=== PATIENT | male | born 1960 | race African-American/Black ===

== ENCOUNTER → 2019-05-03 | Day surgery (SDC) | payer MEDICARE ==
[2019-04-24 13:27] LABS: BASOPHILS % 0.6 % (0.0-1.0); EOSINOPHILS # (AUTO) 0.2 (0.0-0.4); EOSINOPHILS % 3.1 % (0.0-6.0); HEMOGLOBIN 12.2 g/dL (14.0-18.0); LYMPHOCYTES # (AUTO) 3.7 (1.0-3.2); LYMPHOCYTES % 53.3 % (18.0-39.1); MEAN CORPUSCULAR HEMOGLOBIN 25.2 pg (28-32); MEAN CORPUSCULAR HGB CONC 30.5 g/dL (31-35); MEAN CORPUSCULAR VOLUME 82.5 fL (81-99); MONOCYTES # (AUTO) 0.6 (0.2-0.8); MONOCYTES % 9.1 % (4.4-11.3); NEUTROPHILS # (AUTO) 2.3 (2.1-6.9); NEUTROPHILS % 33.8 % (38.7-80.0); PLATELET COUNT 259 x10e3/uL (140-360); RED BLOOD COUNT 4.85 x10e6/uL (4.3-5.7); RED CELL DISTRIBUTION WIDTH 12.5 % (11.7-14.4)
[2019-04-24 13:37] LABS: INR 0.91; PROTHROMBIN TIME 12.7 seconds (11.9-14.5)
[2019-04-24 13:38] LABS: PARTIAL THROMBOPLASTIN TIME 27.9 seconds (23.8-35.5)
[2019-04-24 13:46] LABS: ALANINE AMINOTRANSFERASE 14 IU/L (0-55); ALBUMIN 4.3 g/dL (3.5-5.0); ALBUMIN/GLOBULIN RATIO 1.3 (0.8-2.0); ALKALINE PHOSPHATASE 59 IU/L (40-150); ANION GAP 12.3 mmol/L (8-16); BLOOD UREA NITROGEN 9 mg/dL (7-26); BUN/CREATININE RATIO 8 (6-25); CALCIUM 9.7 mg/dL (8.4-10.2); CARBON DIOXIDE 24 mmol/L (22-29); CHLORIDE 103 mmol/L (98-107); CREATININE, SERUM 1.19 mg/dL (0.72-1.25); EST GLOMERULAR FILTRATION RATE > 60 ML/MIN (60-); GLUCOSE 94 mg/dL (74-118); POTASSIUM 4.3 mmol/L (3.5-5.1); SODIUM 135 mmol/L (136-145)
[~2019-05-03] MED LIST: ALBUTEROL0.63 MG/3 INH; FLOMAX0.4 MG PO; LISINOPRIL10 MG PO; MIDAZOLAM HCL 2 MG/2 ML VIAL ONE; NORCO 10-325 T1 EACH PO; PROPOFOL IV EMULSION 10 MG/ML 50 ML VIAL ONE; SIMVASTATIN40 MG PO; VALIUM5 MG PO
[2019-05-03 07:30] VITALS: BP 119/82
--- OUTSIDE RECORDS SUMMARY | 2019-05-10 11:44 | XMS REPORT ---
Author Author [facility] Address Unknown Phone Unavailable Care Team Providers Care J2Ee Software Engineer Name Role Phone Unavailable Unavailable Problems This patient has no known problems. Allergies, Adverse Reactions, Alerts This patient has no known allergies or adverse reactions. Medications This patient has no known medications. Encounters Start Date/Time End Date/Time Encounter Type Admission Type Attending Clinicians Care Facility Care Department Encounter ID 2018-11-14 15:29:00 2018-11-14 15:29:00 Emergency E [facility] [id number]
--- OUTSIDE RECORDS SUMMARY | 2019-05-10 11:44 | XMS REPORT ---
Author Organization Unknown Address [address] [place] [address] Phone [phone] Care Team Providers Care Accounting Bookkeeper Name Role Phone THOMAS "MUSA BEASLEY MD 3 [phone] Allergies Code Code System Name Reaction Severity Status Onset NKDA Medications Name Status Start Date Stop Date amoxicillin 875 mg-potassium clavulanate 125 mg tablet Completed 07/13/2017 azithromycin 250 mg tablet Completed 06/12/2017 Bromfed DM 2 mg-30 mg-10 mg/5 mL syrup Take 10 mL every 6-8 hours by oral route as needed for 5 days. Completed 06/12/2017 cyclobenzaprine 10 mg tablet Take 1 tablet every day by oral route at bedtime for 60 days. Completed 12/12/2016 Depo-Medrol 80 mg/mL suspension for injection 1 cc injecfted deep IM, once, as a single dose Completed 01/13/2017 fluticasone 50 mcg/actuation nasal spray,suspension Completed 07/13/2017 gabapentin 300 mg capsule 1 tab TID Active Not available Harvoni 90 mg-400 mg tablet Completed 05/12/2017 hydrocodone 10 mg-acetaminophen 325 mg tablet Take 1 tablet 3 times a day by oral route for 30 days. Active Not available ibuprofen 800 mg tablet Active Not available methocarbamol 500 mg tablet Completed 08/23/2016 methylprednisolone 4 mg tablets in a dose pack Completed 08/09/2017 simvastatin 40 mg tablet Take 1 tablet every day by oral route for 90 days. Active Not available tamsulosin 0.4 mg capsule Take 1 capsule every day by oral route for 90 days. Active Not available tramadol 50 mg tablet Take 1 tablet every 8 hours by oral route as needed for 30 days. Completed 12/12/2016 Valium 5 mg tablet Take 1 tablet 3 times a day by oral route for 30 days. Active Not available Vanacof 1 mg-30 mg-12.5 mg/5 mL oral liquid Take 10 mL every 8 hours by oral route as needed for 5 days. Completed 06/12/2017 Viagra 100 mg tablet Take 1 tablet every day by oral route for 30 days. 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 Lower Urinary Tract Symptoms Due to Benign Prostatic Hypertrophy Active 08/09/2017 Procedures Date Name Performed by 05/22/2014 Neck Spine Fusion Information not available 10/20/2013 Neck Spine Fusion Information not available 12/12/2016 XR, Cervical Spine Information not available 01/13/2017 MRI, Cervical Spine, W/o Contrast Neul ([facility]) [address] [place] [address] (Work Place) Lab Results Date Name Specimen Result Interpretation Description Value Range Status Address 08/23/2016 Hepatitis C Virus RNA, Quant, PCR, Serum or Plasma High HCV Ab >11.0 s/co ratio 0.0-0.9 s/co ratio Final [facility] Laboratory: [address] 08/23/2016 1 Comment: Comment: comment Final [facility] Laboratory: [address] 08/23/2016 CBC W/ Auto Diff Wbc 5.88 x10*3/L 2.90-10.50 x10*3/L Final [facility] Laboratory: [address] Rbc 5.18 10*12/L 3.61-5.21 10*12/L Final [facility] Laboratory: [address] Hemoglobin 13.20 g/dL 12.30-17.50 g/dL Final [facility] Laboratory: [address] Hematocrit 41.4 % 37.1-51.3 % Final [facility] Laboratory: [address] Mcv 79.9 fL 79.4-101.6 fL Final [facility] Laboratory: [address] Low Mch 25.5 pg 26.2-34.8 pg Final [facility]: [address] Mchc 31.9 g/dL 30.2-35.6 g/dL Final [facility]: [address] [place] RDW-SD 36.3 fL 35.8-49.8 fL Final [facility]: [address] [place] Platelet Count 282.0 k/uL 118.8-347.0 k/uL Final [facility]: [address] [place] Mpv 11.2 fL 8.4-13.4 fL Final [facility]: [address] [place] Low Neut% 38.5 % 39.1-76.5 % Final [facility]: [address] [place] High Lymph% 50.5 % 13.8-46.8 % Final [facility]: [address] [place] Mon% 6.6 % 4.6-14.4 % Final [facility]: [address] [place] Eos% 3.4 % 0.8-7.3 % Final [facility]: [address] [place] Baso% 1.0 % 0.2-1.5 % Final [facility]: [address] [place] Neut# 2.3 x10*3/L 0.8-7.0 x10*3/L Final [facility]: [address] [place] Lymph# 3.0 x10*3/L 0.6-3.2 x10*3/L Final [facility]: [address] [place] Mon# 0.4 x10*3/L 0.2-1.0 x10*3/L Final [facility]: [address] [place] Eos# 0.20 x10*3/L 0.04-0.51 x10*3/L Final [facility]: [address] [place] Baso# 0.06 x10*3/L 0.01-0.09 x10*3/L Final [facility]: [address] [place] 08/23/2016 CMP, Serum or Plasma Alt 40 U/L 0-55 U/L Final [facility]: [address] [place] High Ast 40 U/L 5-34 U/L Final [facility]: [address] [facility] [facility] Bun 10 mg/dL 8-26 mg/dL Final [facility]: [address] [facility] Alk Phos 66 unit/L 40-150 unit/L Final [facility]: [address] [facility] Glucose 97 mg/dL 70-99 mg/dL Final [facility]: [address] Albumin 4.4 g/dL 3.5-5.0 g/dL Final [facility]: [address] [place] [address] Creatinine 1.19 mg/dL 0.72-1.25 mg/dL Final [facility]: [address] [place] [address] eGFR Non- >60 mL/min/1.73m2 >60 mL/min/1.73m2 Final [facility]: [address] Total Bilirubin 0.6 mg/dL 0.2-1.2 mg/dL Final [facility]: [address] eGFR - >60 mL/min/1.73m2 >60 mL/min/1.73m2 Final [facility]: [address] [facility] Sodium 141 mEq/L 137-144 mEq/L Final [facility]: [address] Potassium 4.3 mEq/L 3.5-5.0 mEq/L Final [facility]: [address] Chloride 106 mmol/L 101-110 mmol/L Final [facility]: [address] Total Protein 7.7 g/dL 6.4-8.3 g/dL Final [facility]: [address] Calcium 9.6 mg/dL 8.4-10.2 mg/dL Final [facility]: [address] Co2 26.3 mmol/L 21.0-29.0 mmol/L Final [facility]: [address] Anion Gap 9 calc Final [facility]: [address] [facility] 08/23/2016 Lipid Panel, Serum Hdl 57 mg/dL 40-60 mg/dL Final [facility] Laboratory: [address] [address], [place] Triglyceride 125 mg/dL 0-149 mg/dL Final [facility]: [address] [address], [place] VLDL Calc. 25 mg/dL Final [facility] Laboratory: [address] cholesterol/HDL Ratio 3 mg/dL Final [facility] Laboratory: [address] [address], [place] non-HDL Cholesterol Calc. 132 mg/dL 0-160 mg/dL Final [facility] Laboratory: [address] [address], [place] Cholesterol 189 mg/dL 0-199 mg/dL Final [facility] Laboratory: [address] [address], [place] LDL Calc. 107 mg/dL 0-130 mg/dL Final [facility] Laboratory: [address] [address], [place] 08/23/2016 PSA, Serum or Plasma PSA, Total 0.79 NG/mL <4.00 NG/mL Final [facility] Laboratory: [address] [address], [place] 08/23/2016 Hepatitis C Genotype, Serum or Plasma Hepatitis C Viral RNA Genotype, lipa(R) 1a Final [facility] Lab: [address] Past Encounters 08/09/2017 Intervertebral Disc Disorder of Cervical Region with Myelopathy; Pure Hypercholesterolemia; Lower Urinary Tract Symptoms Due to Benign Prostatic Hypertrophy Thomas Beasley MD: [id number] [facility], [address] [address], Ph. 07/13/2017 Intervertebral Disc Disorder of Cervical Region with Myelopathy; Pure Hypercholesterolemia; Lower Urinary Tract Symptoms Due to Benign Prostatic Hypertrophy Thomas Beasley MD: [id number] [facility], [address] [phone], Ph. 06/12/2017 Intervertebral Disc Disorder of Cervical Region with Myelopathy; Pure Hypercholesterolemia; Lower Urinary Tract Symptoms Due to Benign Prostatic Hypertrophy; Acute Maxillary Sinusitis; Chronic Hepatitis C JULIO CESAR Rodriguez: [id number] [facility], [address] [address], Ph. 05/12/2017 Intervertebral Disc Disorder of Cervical Region with Myelopathy; Upper Respiratory Infection Emerson A. Yung Verduzco, MD: [id number] [facility], [address] [address], Ph. 04/12/2017 Intervertebral Disc Disorder of Cervical Region with Myelopathy; Immunization Thomas Beasley MD: [id number] [address], Ph. 03/15/2017 Spasmodic Torticollis; Spinal Stenosis in Cervical Region JOSAFAT Arizmendi: [id number] [address], Ph. 02/13/2017 Cervical Spondylosis; Spasmodic Torticollis; Pure Hypercholesterolemia; Lower Urinary Tract Symptoms Due to Benign Prostatic Hypertrophy; Body Mass Index 25- 29 - Overweight Thomas Beasley MD: [address] [place] [phone], Ph. 01/13/2017 Spasmodic Torticollis; History of Cervical Spine Fusion Emerson Verduzco MD: [address] [place] [phone], Ph. 12/12/2016 Spasmodic Torticollis Thomas Beasley MD: [id number] [address], Ph. 09/21/2016 Chronic Hepatitis C; Pure Hypercholesterolemia; Low Back Pain Thomas Beasley MD: [address] [place] [phone], Ph. 08/23/2016 Adult Health Examination; Chronic Hepatitis C; Neck Pain; Lower Urinary Tract Symptoms Due to Benign Prostatic Hypertrophy; Urinary Urgency Due to Benign Prostatic Hypertrophy; Impotence of Organic Origin; Screening for Malignant Neoplasm of Prostate; Screening for Malignant Neoplasm of Colon; Body Mass Index 25-29 - Overweight; Advance Directive Discussed with Patient Thomas Beasley MD: [id number] [address], Ph. Social History Smoking Status Never Smoker Vaccine List Vaccine Type influenza, injectable, quadrivalent, preservative free 04/12/20170.5 mL Plan of Care Patient Instructions It was good to see you in the office today for your Medicare Annual Wellness Visit. You have been provided some information on healthy nutrition, including a diet rich in fruits and vegetables, minimizing simple carbohydrates, salt, and saturated fats. I want to encourage regular cardiovascular exercise such as walking at least 30 minutes daily, 5 times per week. Please remember to schedule any preventive health measures that we talked about today. You have also been provided education on fall prevention and community- based lifestyle interventions to help reduce health risks and promote healthy living in your Sign[employer] folder. Screening Recommendations 1. Vaccines Pneumococcal: discussed today and information sent with patient in their [employer] health folder Influenza: discussed today and information sent with patient in their [employer] health folder Shingles: discussed today and information sent with patient in their [employer] health folder Tetanus: discussed today and information sent with patient in their [employer] health folder 2. Prostate Screening: discussed today and information sent with patient in their [employer] health folder 3. Colorectal cancer Screening Colonoscopy: discussed today and information sent with patient in their [employer] health folder Fecal Occult Blood: discussed today and information sent with patient in their [employer] health folder 4. Bone Mass Measurement: discussed today 5. Eye Exam Screening: discussed today 6. Cholesterol Screening: discussed today 7. Diabetes Screening: discussed today Reminders Provider Appointments None recorded. Lab None recorded. Referral None recorded. Procedures None recorded. Surgeries None recorded. Imaging None recorded. Vitals 08/09/2017 08:30AM Est Patient Height Weight BMI Blood Pressure 5 ft 3 in 162.2 lbs 28.7 kg/m2 143/88 mm[Hg] 07/13/2017 11:30AM Est Patient Height Weight BMI Blood Pressure 5 ft 3 in 161 lbs 28.5 kg/m2 (1) 149/98 mm[Hg] (2) 144/95 mm[Hg] 06/12/2017 11:45AM Est Patient Height Weight BMI Blood Pressure 5 ft 3 in 158 lbs 28 kg/m2 151/94 mm[Hg] 05/12/2017 02:45PM Est Patient Height Weight BMI Blood Pressure 5 ft 3 in 159 lbs 28.2 kg/m2 126/77 mm[Hg] 04/12/2017 02:15PM Est Patient Height Weight BMI Blood Pressure 5 ft 3 in 162.6 lbs 28.8 kg/m2 131/87 mm[Hg] 03/15/2017 02:15PM Est Patient Height Weight BMI Blood Pressure 5 ft 3 in 157 lbs 27.8 kg/m2 136/91 mm[Hg] 02/13/2017 02:45PM Est Patient Height Weight BMI Blood Pressure 5 ft 3 in 154.2 lbs 27.3 kg/m2 145/94 mm[Hg] 01/13/2017 08:30AM Est Patient Height Weight BMI Blood Pressure 5 ft 3 in 157.4 lbs 27.9 kg/m2 132/89 mm[Hg] 12/12/2016 02:45PM Est Patient Height Weight BMI Blood Pressure 5 ft 3 in 159 lbs 28.2 kg/m2 124/85 mm[Hg] 09/21/2016 10:30AM Est Patient Height Weight BMI Blood Pressure 5 ft 3 in 160.2 lbs 28.4 kg/m2 144/88 mm[Hg] 08/23/2016 02:00PM BOILER MAKER/EST CPX Height Weight BMI Blood Pressure 5 ft 3 in 159 lbs 28.2 kg/m2 128/88 mm[Hg]
== END | disposition home or self-care (01) ==
LOC: OR 05:19
PROVIDERS: ATTEND Internal Medicine Gastroenterology
DX: Z12.11 Encounter for screening for malignant neoplasm of colon (principal); D12.3 Benign neoplasm of transverse colon; D12.5 Benign neoplasm of sigmoid colon; K64.8 Other hemorrhoids; Z71.3 Dietary counseling and surveillance; B18.2 Chronic viral hepatitis C; I10 Essential (primary) hypertension; G89.29 Other chronic pain; J45.909 Unspecified asthma, uncomplicated; E66.3 Overweight; Z01.810 Encounter for preprocedural cardiovascular examination; Z01.812 Encounter for preprocedural laboratory examination; Z68.26 Body mass index [BMI] 26.0-26.9, adult
CPT/HCPCS: 36415; 45380; 80053; 85025; 85610; 85730; 88305; 93005; J2250; 45378; 45384

== ENCOUNTER → 2020-12-10 | Day surgery (SDC) | payer MEDICARE ==
[~2020-12-10] MED LIST changes: +ALBUTEROL/IPRATROPIUM 3 ML NEB ONE; -MIDAZOLAM HCL 2 MG/2 ML VIAL ONE; +PROPOFOL IV EMULSION 10 MG/ML 20 ML VIAL ONE; -PROPOFOL IV EMULSION 10 MG/ML 50 ML VIAL ONE
[2020-12-10 09:15] VITALS: BP 128/78
== END | disposition home or self-care (01) ==
LOC: OR 06:10
PROVIDERS: ATTEND Internal Medicine Gastroenterology
DX: Z09 Encounter for follow-up examination after completed treatment for conditions other than malignant neoplasm (principal); Z86.010 Personal history of colon polyps; E66.3 Overweight; Z68.26 Body mass index [BMI] 26.0-26.9, adult; Z71.3 Dietary counseling and surveillance; I10 Essential (primary) hypertension; Z86.19 Personal history of other infectious and parasitic diseases; Z01.810 Encounter for preprocedural cardiovascular examination; E78.5 Hyperlipidemia, unspecified; J45.909 Unspecified asthma, uncomplicated; Z53.8 Procedure and treatment not carried out for other reasons; R06.03 Acute respiratory distress
CPT/HCPCS: 45378; 93005; J2704